=== PATIENT | female | born 1995 | race Caucasian/White ===

== ENCOUNTER 2016-12-30 09:32 | Inpatient (IN) | payer MEDICAID ==
[2016-12-29] MEDS: KETOROLAC 30 MG/1 ML IV SCH (23:59)
[~2016-12-30] VITALS: Ht 152.4 cm; Wt 59.0 kg
[2016-12-30] MEDS ORDERED: OXYTOCIN 30U/ 0.9% NaCL 500ML 500 ML IV SCH (10:37)
[2016-12-30 10:51] VITALS: BP 114/64
[2016-12-30] MEDS ORDERED: METOCLOPRAMIDE 5 MG/ML, 2ML IV ONE (11:00)
[2016-12-30] MEDS ORDERED: PLEASE ENTER HEIGHT AND WEIGHT MC SCH (11:00)
[2016-12-30] MEDS ORDERED: SODIUM CITRATE/CITRIC ACID 30 ML UDC PO ONE (11:00)
[2016-12-30] MEDS ORDERED: LACTATED RINGERS 1,000 ML IVBOLUS ONE (11:00)
[2016-12-30] MEDS ORDERED: SODIUM CITRATE/CITRIC ACID 30 ML UDC ONE (11:08)
[2016-12-30] MEDS ORDERED: NEWBORN KIT ONE (11:08)
[2016-12-30] MEDS ORDERED: METOCLOPRAMIDE 5 MG/ML, 2ML ONE (11:08)
[2016-12-30] MEDS ORDERED: OXYTOCIN 30U/ 0.9% NaCL 500ML 500 ML ONE (11:08)
[2016-12-30] MEDS: LACTATED RINGERS 1,000 ML IV SCH ×4 (12:29→17:02)
[2016-12-30] MEDS ORDERED: FENTANYL PF 100 MCG/2ML ONE (14:33)
[2016-12-30] MEDS ORDERED: HYDROmorphone 2 MG/ML, 1ML ONE (14:33)
[2016-12-30] MEDS: OXYTOCIN 30U/ 0.9% NaCL 500ML 500 ML IV SCH (16:23)
[2016-12-30] MEDS ORDERED: MEASLES,MUMPS&RUBELLA VACC/PF 0.5 ML SQ-VACC PRN (16:30)
[2016-12-30] MEDS ORDERED: OXYcodone IR 5MG TABLET PO PRN (16:30)
[2016-12-30] MEDS ORDERED: MEPERIDINE/PF 100 MG/ML IM PRN (16:30)
[2016-12-30] MEDS ORDERED: ONDANSETRON 2MG/ML, 2ML IV PRN (16:30)
[2016-12-30] MEDS ORDERED: MEPERIDINE/PF 50 MG/ML IM PRN (16:30)
[2016-12-30] MEDS ORDERED: MISOPROSTOL 200 MCG TABLET PR PRN (16:30)
[2016-12-30] MEDS ORDERED: morphine SULFATE 10 MG/ML, 1ML IVPush PRN ×2 (16:30→17:30)
[2016-12-30] MEDS ORDERED: OXYcodone/APAP 5/325MG TABLET PO PRN (16:30)
[2016-12-30] MEDS ORDERED: CALCIUM CARBONATE 500 MG TAB.CHEW PO PRN (16:30)
[2016-12-30] MEDS ORDERED: SIMETHICONE 80 MG CHEW TAB PO PRN (16:30)
[2016-12-30] MEDS ORDERED: morphine SULFATE 10 MG/ML, 1ML ONE (17:26)
[2016-12-30] MEDS: morphine SULFATE 10 MG/ML, 1ML IVPush PRN ×2 (17:40→23:11)
[2016-12-30] MEDS ORDERED: KETOROLAC 30 MG/1 ML ONE (18:01)
[2016-12-30] MEDS: KETOROLAC 30 MG/1 ML IV SCH ×2 (18:03→23:59)
[2016-12-30 19:40] VITALS: BP 109/64
[2016-12-30] MEDS: DOCUSATE 100 MG CAPSULE PO SCH (23:57)
[2016-12-31 00:20] VITALS: BP 114/67
[2016-12-31] MEDS: LACTATED RINGERS 1,000 ML IV SCH ×5 (00:23→16:23)
[2016-12-31] MEDS: OXYTOCIN 30U/ 0.9% NaCL 500ML 500 ML IV SCH ×2 (02:23→12:23)
[2016-12-31] MEDS: OXYcodone/APAP 5/325MG TABLET PO PRN ×3 (04:23→16:49)
[2016-12-31] MEDS ORDERED: RHOGAM FROM BLOOD BANK 1 NOTE EA IM/IV ONE (04:30)
[2016-12-31 05:45] VITALS: BP 105/64
[2016-12-31] MEDS: KETOROLAC 30 MG/1 ML IV SCH ×4 (06:10→22:04)
[2016-12-31 07:56] VITALS: BP_SYST 106; BP_SYST 108; BP_DIAS 66
[2016-12-31] MEDS: PRENATAL VIT/IRON/FA 1 EACH TABLET PO SCH (08:08)
[2016-12-31] MEDS: OXYcodone IR 5MG TABLET PO PRN ×2 (08:08→20:42)
[2016-12-31] MEDS: DOCUSATE 100 MG CAPSULE PO SCH ×2 (08:08→20:41)
[2016-12-31 21:45] VITALS: BP 116/72
[2017-01-01] MEDS: OXYcodone/APAP 5/325MG TABLET PO PRN ×2 (00:48→06:02)
[2017-01-01] MEDS ORDERED: DIPH,PERTUSS(ACELL),TET VAC/PF NC IM-VACC ONE (04:00)
[2017-01-01] MEDS: KETOROLAC 30 MG/1 ML IV SCH ×2 (04:10→10:07)
[2017-01-01] MEDS ORDERED: OXYC-302 PO (05:13)
[2017-01-01] MEDS ORDERED: IBUP800T PO (05:16)
[2017-01-01] MEDS ORDERED: DOCU-30 PO (05:17)
[2017-01-01 07:30] VITALS: BP 113/77
[2017-01-01] MEDS: DOCUSATE 100 MG CAPSULE PO SCH (08:03)
[2017-01-01] MEDS: PRENATAL VIT/IRON/FA 1 EACH TABLET PO SCH (08:03)
[2017-01-01] MEDS ORDERED: FERR325T10 PO (09:06)
[2017-01-01] MEDS: OXYcodone IR 5MG TABLET PO PRN ×2 (10:07→14:13)
[2017-01-02] MEDS ORDERED: IBUPROFEN 600 MG TABLET PO PRN (08:00)
== END 2017-01-01 15:40 | disposition home or self-care (01) | DRG 765 ==
LOC: LDIP 10:31 → 2NW 19:02
PROVIDERS: ADMIT Obstetrics & Gynecology; ATTEND Obstetrics & Gynecology
PROC: 10D00Z1 Extraction of Products of Conception, Low, Open Approach (ICD-10-PCS; principal; 2016-12-30)
PROC: 3E0334Z Introduction of Serum, Toxoid and Vaccine into Peripheral Vein, Percutaneous Approach (ICD-10-PCS; 2016-12-31)
DX: O34.211 Maternal care for low transverse scar from previous cesarean delivery (principal); O36.5930 Maternal care for other known or suspected poor fetal growth, third trimester, not applicable or unspecified; Z37.0 Single live birth; Z3A.39 39 weeks gestation of pregnancy; O99.02 Anemia complicating childbirth; D50.9 Iron deficiency anemia, unspecified; O69.81X0 Labor and delivery complicated by cord around neck, without compression, not applicable or unspecified; O26.893 Other specified pregnancy related conditions, third trimester; Z67.41 Type O blood, Rh negative
CPT/HCPCS: 36415; 85025; 85461; 86850; 86900; 90715; J1170; J1885; J2790; J3010; J2270; J2590; J2765; J7120

== ENCOUNTER 2018-12-15 16:42 | Emergency (ER) | payer MEDICAID ==
[~2018-12-15] VITALS: Ht 152.4 cm; Wt 47.3 kg
[~2018-12-15 16:42] MED LIST: DOCU-131 PO; FERR-51 PO; IBUP-1223 PO; OXYC-302 PO; PREN1TAB10 PO
[2018-12-15 16:47] VITALS: BP 113/69
[2018-12-15] MEDS ORDERED: hydrOXyzine 50MG TABLET PO ONE (17:30)
--- NOTE | 2018-12-15 18:11 | NUR ---
LAB JUST FINISHED DRAWING BLOOD.
[2018-12-15 18:22] LABS: BASOPHILS # (AUTO) 0.02 x10^3/uL (0-0.1); BASOPHILS % (AUTO) 0 % (0-1); EOSINOPHILS # (AUTO) 0.02 x10^3/uL (0-0.4); EOSINOPHILS % (AUTO) 1 % (1-7); LYMPHOCYTES # (AUTO) 1.01 x10^3/uL (1-3.4); LYMPHOCYTES % (AUTO) 21 % (22-44); MD NO; MEAN CORPUSCULAR HEMOGLOBIN 26.8 pg (27.0-34.8); MEAN CORPUSCULAR HGB CONC 32.2 g/dL (32.4-35.8); MEAN CORPUSCULAR VOLUME 83.1 fL (80-100); MONOCYTES # (AUTO) 0.23 x10^3/uL (0.2-0.8); MONOCYTES % (AUTO) 5 % (2-9); NEUTROPHILS # (AUTO) 3.58 x10^3/uL (1.8-6.8); NEUTROPHILS % (AUTO) 74 % (42-75); PLATELET COUNT 438 x10^3/uL (130-400); RED BLOOD COUNT 5.12 x10^6/uL (3.82-5.3); RED CELL DISTRIBUTION WIDTH 17.4 % (9.6-15.2)
[2018-12-15 18:28] LABS: ALBUMIN 3.9 g/dL (3.4-5.0); ANION GAP 7 mmol/L (5-15); CALCIUM 8.9 mg/dL (8.5-10.1); CHLORIDE 108 mmol/L (98-107); CREATININE 0.64 mg/dL (0.55-1.02)
--- NOTE | 2018-12-15 18:38 | NUR ---
LABS RESULTED. PT UP FOR RECHECK
== END 2018-12-15 18:58 | disposition home or self-care (01) ==
LOC: ED 18:20
DX: L20.9 Atopic dermatitis, unspecified (principal)
CPT/HCPCS: 36415; 80048; 82040; 85025; 99283